=== PATIENT | male | born 1935 | race Caucasian/White ===

== ENCOUNTER → 2016-08-13 | Outpatient (CLI) | payer MEDICARE, MEDICAID ==
[~2016-08-13] MED LIST: ASPI325T32 PO; ATOR10TA65 PO; AZIL1TAB2 PO; DESV50TA4 PO; DEXL30CA2 PO; FEBU40TA PO; HYDR-3498 PO; LINA290C PO; METF-382 PO; NEBI10TA2 PO; TEMA15CA PO; TRAM50TA2 PO
--- NOTE | 2016-08-13 10:23 | RADRPT ---
PROCEDURE: XR right knee. CLINICAL INDICATION: Knee pain. TECHNIQUE: Three views are available for review. COMPARISON: 05/07/2016 FINDINGS: There is a total knee replacement. There is no evidence of loosening of the prosthesis. The osseous structures are normal in mineralization, architecture and alignment No acute fracture or dislocation is seen.No osseous lesions are identified. The soft tissues are unremarkable . there is a small sebastian prapatellar joint effusion. IMPRESSION: Small suprapatellar joint effusion Unremarkable total knee replacement. RPTAT: [facility] .Justin Parson MD, MD Date Time Electronically viewed and signed by .Justin Parson MD, on 08/13/2016 10:22 .B/
== END | disposition home or self-care (01) ==
LOC: HKI 09:40
PROVIDERS: ATTEND Orthopaedic Surgery
DX: Z47.1 Aftercare following joint replacement surgery (principal); Z96.653 Presence of artificial knee joint, bilateral
CPT/HCPCS: 73562; G0463

== ENCOUNTER → 2018-04-21 | Outpatient (CLI) | END | disposition home or self-care (01) ==